=== PATIENT | male | born 1975 ===

== ENCOUNTER 2017-06-20 11:51 | Emergency (ER) | payer BC ==
[2017-06-20 13:55] VITALS: BP 107/65
--- NOTE | 2017-06-20 14:21 | UC ---
Humble Jara Gabriel, scribed for Glynn Weiss MD on 06/20/17 at 1343 . Respiratory Complaint HPI - HPI Summary HPI Summary: This patient is a 42 year old MF presenting to [facility] with a chief complaint of productive cough since 4 days ago. The patient rates the pain 4/10 in severity. Patient reports [place]ST[place], body aches, and fever. Patient denies ear pain. Patient reports having symptoms similar to current illness a month ago and was given Augmentin for that, but he didnt finish it. He began taking the rest of his Rx when these symptoms began. He also had a tick bite 3 weeks ago with no rash but pain at the bite. - History of Current Complaint Chief Complaint: UCRespiratory Stated Complaint: CONGESTED, HEADACHE, COUGH Time Seen by Provider: 06/20/17 13:33 Hx Obtained From: Patient Onset/Duration: Lasting Days - 4, Still Present Timing: Constant Severity Initially: Mild Severity Currently: Mild Pain Intensity: 4 Pain Scale Used: 0-10 Numeric Character: Cough: Productive Associated Signs And Symptoms: Positive: Negative - ear pain, Fever - Allergies/Home Medications Allergies/Adverse Reactions: Allergies Allergy/AdvReac Type Severity Reaction Status Date / Time No Known Allergies Allergy Verified 06/20/17 12:28 Home Medications: Home Medications Amoxicillin/Clavulanate TAB* [Augmentin TAB 875*] 1 tab PO BID 06/20/17 [ History Confirmed 06/20/17] PMH/Surg Hx/FS Hx/Imm Hx Previously Healthy: Yes - Surgical History Surgical History: None - Family History Known Family History: Negative: Cardiac Disease, Hypertension, Diabetes, Renal Disease - Social History Alcohol Use: Occasionally Substance Use Type: None Smoking Status (MU): Never Smoked Tobacco Review of Systems Constitutional: Fever Eyes: Negative - ear pain Respiratory: Cough Musculoskeletal: Myalgia - body aches Neurological: Headache All Other Systems Reviewed And Are Negative: Yes Physical Exam Triage Information Reviewed: Yes Appearance: Ill-Appearing Vital Signs: Initial Vital Signs Temp 101.0 F 06/20/17 12:25 Pulse 86 06/20/17 12:25 Resp 18 06/20/17 12:25 BP 129/73 06/20/17 12:25 Pulse Ox 100 06/20/17 12:25 Vital Signs Reviewed: Yes Eye Exam: Normal ENT Exam: Other - Posterior pharynx erythema ENT: Positive: TMs normal Neck: Positive: Supple, Nontender, Other: - Positive anterior cervical lymphadenopathy Respiratory Exam: Normal, Other - CTA Respiratory: Positive: Normal breath sounds Cardiovascular Exam: Normal Cardiovascular: Positive: RRR, No Murmur Abdominal Exam: Normal Abdomen Description: Positive: Nontender, Soft Bowel Sounds: Positive: Present Musculoskeletal Exam: Normal Musculoskeletal: Positive: Strength Intact, ROM Intact Neurological Exam: Normal, Other - sensory/motor intact, A&O x3 Psychological Exam: Normal - affect/mood appropriate Skin Exam: Normal - warm, color reflects adequate perfusion, dry UC Diagnostic Evaluation - Laboratory O2 Sat by Pulse Oximetry: 100 Respiratory Course/Dx - Course Course Of Treatment: DISCUSSED CHECKING FOR INFLUENZA/PNEUMONIA WITH SWAB/BLOOD WORK/CXR. PATIENT DECLINES FURTHER WORK UP AT THIS TIME. PREFERS TO TREAT WITH ABX THAT WILL COVER TICK/BRONCHITIS/SINUSITIS. RX DOXY. F/U PMD; GET RECHECKED IF WORSE. - Differential Dx/Diagnosis Provider Diagnoses: FEVER AFTER TICK BITE. URI/BRONCHITIS/SINUSITIS SX. Discharge - Discharge Plan Condition: Stable Disposition: HOME Prescriptions: DOXYcycline CAP(*) [DOXYcycline 100MG CAP(*)] 100 mg PO BID #28 cap Patient Education Materials: Tick Bite (ED), Fever in Adults (ED) Referrals: [facility]YS[facility]IAN REFERRAL [Outside] No Primary Care Phys,NOPCP [Primary Care Provider] - Additional Instructions: Your blood pressure was elevated during todays visit; please follow up with your primary care provider within a week for further evaluation. FOLLOW UP WITH YOUR DOCTOR. GET RECHECKED FOR ANY WORSENING OF YOUR CONDITION OR QUESTIONS OR CONCERNS. The documentation as recorded by the Humble [email or web address] Gabriel accurately reflects the service I personally performed and the decisions made by me, Glynn Weiss MD.
== END 2017-06-20 14:04 | disposition home or self-care (01) ==
LOC: UCEAST 11:51
DX: R50.9 Fever, unspecified (principal); T14.8XXA Other injury of unspecified body region, initial encounter; W57.XXXA Bitten or stung by nonvenomous insect and other nonvenomous arthropods, initial encounter; Y92.9 Unspecified place or not applicable
CPT/HCPCS: 99202; G0463